=== PATIENT | male | born 1950 | race Caucasian/White ===

== ENCOUNTER 2024-02-03 13:07 | Emergency (ER) | payer MEDICARE ==
[~2024-02-03] VITALS: Ht 175.3 cm; Wt 82.0 kg
[2024-02-03 13:16] VITALS: TEMP 97.8
[2024-02-03] MEDS ORDERED: CETI5TAB14 PO (13:24)
[2024-02-03] MEDS ORDERED: LOSA-382 PO (13:24)
[2024-02-03] MEDS ORDERED: ASPI81TA87 PO (13:24)
[2024-02-03] MEDS ORDERED: ALBU18HF12 IH (13:24)
[2024-02-03] MEDS ORDERED: METF-1211 PO (13:24)
[2024-02-03] MEDS ORDERED: MONT-35 PO (13:24)
[2024-02-03] MEDS ORDERED: TIOT185 IH (13:24)
[2024-02-03] MEDS ORDERED: FLUT1BLS12 IH (13:24)
[2024-02-03] MEDS ORDERED: METO50TA9 PO (13:24)
[2024-02-03] MEDS ORDERED: AMLO5TAB66 PO (13:24)
[2024-02-03] MEDS ORDERED: TAMS0.4C94 PO (13:24)
[2024-02-03] MEDS ORDERED: ATOR40TA28 PO (13:24)
[2024-02-03 13:59] LABS: COVID AG,FIA SOURCE NASAL SWAB
[2024-02-03 14:02] LABS: BASOPHILS % (AUTO) 0.2 % (0.0-2.0); EOSINOPHILS % (AUTO) 0.1 % (1.0-6.0); HEMATOCRIT 43.3 % (41-53); HEMOGLOBIN 14.7 g/dL (13.5-17.5); LYMPHOCYTES # (AUTO) 0.5 K/uL (1.0-4.8); MEAN CORPUSCULAR HEMOGLOBIN 29.8 pg (26.0-34.0); MEAN CORPUSCULAR VOLUME 88 fL (80-100); MONOCYTES # (AUTO) 0.7 K/uL (0.1-1.0); MONOCYTES % (AUTO) 9.9 % (2.0-9.0); NEUTROPHILS % (AUTO) 82.8 % (40.0-70.0); PLATELET COUNT (AUTO) 206 K/uL (150-450); RED BLOOD CELL COUNT(AUTO) 4.94 MIL/uL (4.50-5.90); RED CELL DISTRIBUTION WIDTH 14.2 % (11.5-14.5); WHITE BLOOD COUNT (AUTO) 7.3 K/uL (4.5-11.0)
[2024-02-03 14:11] LABS: ANION GAP 10 mmol/L (8-16); CALCIUM, TOTAL 8.2 mg/dL (8.8-10.5); CARBON DIOXIDE 23 mmol/L (22-29); CHLORIDE 93 mmol/L (98-107); CREATININE 0.81 mg/dL (0.60-1.30); GLOMERULAR FILTR. RATE CALC > 60 mL/min (>60); GLUCOSE,RANDOM 137 mg/dL (70-110); POTASSIUM 3.9 mmol/L (3.5-5.1); SODIUM SERUM 126 mmol/L (136-145); UREA NITROGEN, BLOOD 12 mg/dL (7-18)
[2024-02-03 14:19] LABS: TROPONIN I-HIGH SENSITIVITY 10 ng/L (<76)
[2024-02-03 14:20] LABS: SARS-COV2 (COVID) ANTIGEN,FIA Negative (Negative)
[2024-02-03 14:21] LABS: INFLUENZA TYPE B NEGATIVE FOR TYPE B (NEGATIVE)
[2024-02-03 14:41] LABS: INFLUENZA TYPE A POSITIVE FOR TYPE A (NEGATIVE)
[2024-02-03] MEDS ORDERED: CETI-450 PO (14:51)
[2024-02-03] MEDS: OSELTAMIVIR PHOSPHATE 75 MG CAPSULE PO ONE (15:07)
[2024-02-03] MEDS: KETOROLAC TROMETHAMINE 30 MG/ML VIAL IVP ONE (15:08)
[2024-02-03 15:48] LABS: ALANINE AMINOTRANSFERASE 25 U/L (12-78); ALKALINE PHOSPHATASE 107 U/L (46-116); ASPARTATE AMINOTRANSFERASE 35 U/L (15-37); BILIRUBIN,TOTAL 0.9 mg/dL (0.1-1.0); TOTAL PROTEIN, SERUM 6.8 g/dL (6.4-8.2)
[2024-02-03 16:16] LABS: ALCOHOL, BLOOD (SERUM) < 3 mg/dL (0-10)
[2024-02-03 16:20] LABS: B-TYPE NATRIURETIC PEPTIDE 91 pg/mL (0-100)
[2024-02-03] MEDS: SODIUM CHLORIDE 0.9% 1,000 ML IV ONE (16:50)
[2024-02-03 17:32] VITALS: BP 126/73; PULSE 65; RESP 18; O2SAT 99
[2024-02-03] MEDS ORDERED: OSEL75CA45 PO (19:34)
== END 2024-02-03 20:05 | disposition home or self-care (01) ==
LOC: EMS 13:07
DX: J10.1 Influenza due to other identified influenza virus with other respiratory manifestations (principal); J44.9 Chronic obstructive pulmonary disease, unspecified; E11.9 Type 2 diabetes mellitus without complications; I10 Essential (primary) hypertension; R51.9 Headache, unspecified; E78.00 Pure hypercholesterolemia, unspecified; Z79.51 Long term (current) use of inhaled steroids; Z79.82 Long term (current) use of aspirin; Z79.84 Long term (current) use of oral hypoglycemic drugs; Z79.899 Other long term (current) drug therapy; Z20.822 Contact with and (suspected) exposure to COVID-19
CPT/HCPCS: 99285; 96374; 70450; 71045; 96361; 87426; 80048; 80076; 83880; 84484; 85025; 87804; 36415; 82962; 93005; G0480; J1885; J7030